=== PATIENT | female | born 1990 | race African-American/Black ===

== ENCOUNTER 2016-04-11 00:17 | Emergency (ER) | payer BC, OTHER ==
[~2016-04-11] VITALS: Ht 177.8 cm; Wt 101.9 kg
[~2016-04-11 00:17] MED LIST: ACYC200C PO
[2016-04-11 00:20] VITALS: BP 128/76; PULSE 81; RESP 16; TEMP 97.5; O2SAT 100
[2016-04-11] MEDS ORDERED: POLY10O RIGHT EYE (00:49)
--- NOTE | 2016-04-11 00:52 | PD ---
HPI Chief Complaint: Eye Problems/Injury Time Seen by Provider: 00:49 Travel History International Travel<30 days: No Contact w/Intl Traveler<30days: No Traveled to known affect area: No History of Present Illness HPI 25-year-old black female presents to emergency Department with complaints of right eye redness and discharge. She states that last night she had some mild irritation in her right eye. She rubbed it. She woke up this morning and her eyelashes were crusted. She has had continued right eye irritation, tearing. The patient has been rubbing it. She denies any fever or chills. No diplopia. No blurred vision. No photophobia. No contacts or glasses. No trauma. No foreign body sensation. PFSH Past Medical History Medical History: Denies Significant Hx Blood Disorders: No Cancer: No Cardiovascular Problems: No Diminished Hearing: No Endocrine: No Genitourinary: No Immune Disorder: No Musculoskeletal: No Neurologic: No Psychiatric: No Reproductive: No Respiratory: No Immunizations Current: Yes Tetanus Vaccination: < 5 Years Influenza Vaccination: No ?: Not LMP: 03/26/16 : 0 Ovarian Cysts: Yes Past Surgical History Abdominal Surgery: Yes (GASTRIC SURGERY AND ENDOSCOPY 01/03/10) Endocrine Surgery: Yes (GALL BLADDER REMOVED) Other Surgery: Yes (GASTRIC BYPASS WITH SLEEVE) Social History Alcohol Use: Yes (RARE) Tobacco Use: No Substance Use: No Allergies-Medications (Allergen,Severity, Reaction): Coded Allergies: Potassium (Unverified Adverse Reaction, Intermediate, 04/11/16) PARESTHESIA? Reported Meds & Prescriptions Reported Meds & Active Scripts Active Acyclovir 200 mg (Acyclovir) 200 Mg Cap 1 Cap PO 5 TIMES A DAY 10 Days Review of Systems Except as stated in HPI: all other systems reviewed are Neg General / Constitutional: No: Fever, Chills Eyes: Positive: Drainage, Redness, No: Diploplia, Blurred Vision, Photophobia , Foreign Body Sensation, Pain, Tearing, Visual changes HENT: No: Headaches, Lightheadedness Cardiovascular: No: Chest Pain or Discomfort Respiratory: No: Cough, Shortness of Breath Gastrointestinal: No: Nausea, Vomiting Genitourinary: No: Frequency, Dysuria Physical Exam Narrative GENERAL: This is a well-nourished, well-developed patient, in no apparent distress. SKIN: No rashes, ecchymoses or lesions. Warm and dry. HEAD: Atraumatic. Normocephalic. EYES: PERRL, EOMI, the right eye is injected. There is minimal swelling of the upper eyelid. Slight mucoid drainage. Lids are flipped and no foreign body seen. Fluorescein stain is negative for corneal abrasion or ulcer. No discharge or injection in the left eye. No scleral icterus. EARS: Clear NOSE: Nasal turbinates appear normal. THROAT: Mucosa pink and moist. Airway patent. NECK: Trachea midline. supple, moves head freely. LUNGS: Clear to auscultation. CV: Regular in rhythm. ABDOMEN: Soft nontender. EXT: No clubbing cyanosis or edema. Data Data Last Documented VS Vital Signs Date Time Temp Pulse Resp B/P Pulse Ox O2 Delivery O2 Flow Rate FiO2 04/11/16 00:39 16 04/11/16 00:20 97.5 81 128/76 100 Room Air Orders Polymyxin/Trimethop Opht Soln (Polytrim (04/11/16 01:00) MDM Medical Decision Making Medical Screen Exam Complete: Yes Emergency Medical Condition: Yes Medical Record Reviewed: Yes Differential Diagnosis MDM: High Differential diagnoses: Acute conjunctivitis (bacterial, viral, allergic, traumatic), glaucoma, iritis, traumatic globe injury, foreign body, corneal abrasion, corneal ulcer, diabetic retinopathy, photokeratitis, herpes keratitis , CMV retinitis Narrative Course Patient's given Polytrim ophthalmic drops to the right eye. This is right eye conjunctivitis Diagnosis Primary Impression: Conjunctivitis, right eye Qualified Code: H10.31 - Acute bacterial conjunctivitis of right eye Patient Instructions: General Instructions Additional Instructions: Rest. Wash eyelashes with baby shampoo 3 times daily. Warm compresses. Polytrim ophthalmic drops. Followup with an eye doctor in one week. Follow-up with a medical doctor one week. Return to the ER if any problems. Med/Other Pt SpecificInfo: Prescription(s) given Scripts Polymyxin B-Trimethoprim Opth Drops (Polytrim Opth Drops)10,000-0.1 Unit/Ml-% Soln1 Drop RIGHT EYE 4-6HR 7 Days Prov:Mary Alice Phan MD 04/11/16 Disposition: 01 DISCHARGE HOME Condition: Stable Edilberto Pickard Apr 11, 2016 00:52
[2016-04-11] MEDS ORDERED: POLYMYXIN/TRIMETHOPRIM OPHT SOLN 10 ML BTL RIGHT EYE ONE (01:00)
== END 2016-04-11 01:10 | disposition home or self-care (01) ==
LOC: NEPB 00:17
DX: H10.31 Unspecified acute conjunctivitis, right eye (principal)
CPT/HCPCS: 99282

== ENCOUNTER 2016-04-18 23:49 | Emergency (ER) | payer BC ==
[~2016-04-18] VITALS: Ht 175.3 cm; Wt 102.4 kg
[~2016-04-18 23:49] MED LIST changes: +POLY10O RIGHT EYE
[2016-04-18 23:52] VITALS: BP 129/78; PULSE 80; RESP 16; TEMP 97.4; O2SAT 100
--- NOTE | 2016-04-19 00:21 | PD ---
HPI Chief Complaint: Eye Problems/Injury Time Seen by Provider: 00:14 Travel History International Travel<30 days: No Contact w/Intl Traveler<30days: No Traveled to known affect area: No History of Present Illness HPI 25-year-old black female returns to the ER after being seen on the 14 of this month for right eye conjunctivitis. She states that she has been using her Polytrim ophthalmic drops 3 times a day. She feels that it has moved from her right eye into her left eye. She still has mucousy stringy discharge. Positive photophobia, discharge and some slight foreign body sensation, decreased vision. She states that she has taken off her eyelashes and has been performing soap and water washing and cool compresses without relief. She still feels that the right eye is worse than the left eye. She does have matting in the morning. No contacts or glasses. No diplopia. No direct trauma. No recent illness. PFSH Past Medical History Narrative Medical Obesity with gastric bypass, HSV Blood Disorders: No Cancer: No Cardiovascular Problems: No Diminished Hearing: No Endocrine: No Genitourinary: No Immune Disorder: No Musculoskeletal: No Neurologic: No Psychiatric: No Reproductive: No Respiratory: No Immunizations Current: Yes Tetanus Vaccination: < 5 Years ?: Not LMP: 3 WKS AGO : 0 Ovarian Cysts: Yes Past Surgical History Abdominal Surgery: Yes (GASTRIC SURGERY AND ENDOSCOPY 01/03/10) Endocrine Surgery: Yes (GALL BLADDER REMOVED) Other Surgery: Yes (GASTRIC BYPASS WITH SLEEVE) Social History Alcohol Use: Yes (RARE) Tobacco Use: No Substance Use: No Allergies-Medications (Allergen,Severity, Reaction): Coded Allergies: Potassium (Unverified Adverse Reaction, Intermediate, 04/18/16) PARESTHESIA? Reported Meds & Prescriptions Reported Meds & Active Scripts Active Polytrim Opth Drops (Polymyxin/Trimethoprim Sulfate) 10,000-0.1 Unit/Ml-% Soln 1 Drop RIGHT EYE 4-6HR 7 Days Acyclovir 200 mg (Acyclovir) 200 Mg Cap 1 Cap PO 5 TIMES A DAY 10 Days Review of Systems Except as stated in HPI: all other systems reviewed are Neg General / Constitutional: No: Fever, Chills Eyes: Positive: Blurred Vision, Photophobia, Drainage, Redness, Foreign Body Sensation, Pain, Tearing, Visual changes, No: Diploplia, Blindness HENT: No: Headaches, Neck Stiffness Cardiovascular: No: Chest Pain or Discomfort, Palpitations Respiratory: No: Cough, Shortness of Breath Gastrointestinal: No: Nausea, Vomiting Genitourinary: No: Urgency, Frequency Musculoskeletal: No: Myalgias, Arthralgias Physical Exam Narrative GENERAL: Well-developed, well-nourished in no acute distress. Nontoxic appearing. HEAD: Normocephalic, atraumatic. EYES: Pupils equal round and reactive. Extraocular motions intact. Patient has mild swelling of the right upper eyelid. There is only trace swelling of the left upper eyelid. No scleral icterus. Positive bilateral injection with slight clear drainage. There is a small amount of mucous in both eyes. Ophthaine is instilled in each eye. The lids are flipped and no foreign bodies seen. There is a large collection of very injected blood vessels in the right upper eye under the eyelid. Fluorescein stain reveals uptake in this area. He was no uptake over the cornea of either eye. I see no dendrites. There appears to be some superficial irritation. Visual acuity is 20/30 in the right eye and 20/30 in the left eye. ENT: TMs clear without erythema. The external auditory canals clear. Nose: clear . Posterior pharynx is pink and moist. No tonsillar edema or exudate. Uvula midline. Airway patent. NECK: Trachea midline.Supple, nontender, moves head freely. No central bony tenderness or spasm. CARDIOVASCULAR: Regular rate and rhythm without murmurs, gallops, or rubs. RESPIRATORY: Clear to auscultation. Breath sounds equal bilaterally. No wheezes , rales, or rhonchi. GASTROINTESTINAL: Abdomen soft, non-tender, nondistended. No hepato-splenomegaly , or palpable masses. No guarding. EXTREMITIES: No clubbing, cyanosis, or edema. No joint tenderness, effusion, or edema noted. BACK: Nontender without deformity or crepitance. No flank tenderness. Data Data Last Documented VS Vital Signs Date Time Temp Pulse Resp B/P Pulse Ox O2 Delivery O2 Flow Rate FiO2 04/18/16 23:52 97.4 80 16 129/78 100 MDM Medical Decision Making Medical Screen Exam Complete: Yes Emergency Medical Condition: Yes Medical Record Reviewed: Yes Differential Diagnosis MDM: High Differential diagnoses: Acute conjunctivitis (bacterial, viral, allergic, traumatic), glaucoma, iritis, traumatic globe injury, foreign body, corneal abrasion, corneal ulcer, diabetic retinopathy, photokeratitis, herpes keratitis , CMV retinitis Narrative Course Patient is given tobramycin ophthalmic ointment. She is advised to follow-up with ophthalmology tomorrow. This is conjunctivitis Diagnosis Primary Impression: Conjunctivitis of both eyes Referrals: Kalyani Cardozo MD Patient Instructions: General Instructions Departure Forms: Tests/Procedures, Work Release Special Instructions: No work 2 days. Additional Instructions: Rest. Wash eyelashes with baby shampoo 3 times daily. Warm compresses. Tobramycin ophthalmic ointment Followup with an eye doctor tomorrow for recheck. Follow-up with a medical doctor one week. Return to the ER if any problems. Med/Other Pt SpecificInfo: Prescription(s) given Disposition: 01 DISCHARGE HOME Condition: Stable Edilberto Pickard Apr 19, 2016 00:20
[2016-04-19] MEDS ORDERED: TOBR.3%O EACH EYE (00:22)
[2016-04-19] MEDS ORDERED: TOBRAMYCIN SULFATE 0.3% OPTH OINT 3.5 GM TUBE EACH EYE ONE (00:30)
== END 2016-04-19 00:39 | disposition home or self-care (01) ==
LOC: NEPB 23:49
DX: H10.9 Unspecified conjunctivitis (principal); H53.143 Visual discomfort, bilateral
CPT/HCPCS: 99283

== ENCOUNTER 2017-05-05 20:19 | Emergency (ER) | payer BC ==
[~2017-05-05] VITALS: Ht 177.8 cm; Wt 80.0 kg
[~2017-05-05 20:19] MED LIST changes: -ACYC200C PO; +METR1TAB76 PO; -POLY10O RIGHT EYE
[2017-05-05 20:47] VITALS: BP 122/74; PULSE 125; RESP 16; TEMP 100.2; O2SAT 100
== END 2017-05-05 22:32 | disposition left against medical advice (07) ==
LOC: NED 20:19
DX: R19.7 Diarrhea, unspecified (principal); Z53.21 Procedure and treatment not carried out due to patient leaving prior to being seen by health care provider
CPT/HCPCS: 99281